=== PATIENT | male | born 1980 | race Caucasian/White ===

== ENCOUNTER 2018-02-04 13:32 | Emergency (ER) | payer BC, OTHER ==
[~2018-02-04] VITALS: Ht 175.3 cm; Wt 117.9 kg
[~2018-02-04 13:32] MED LIST: ALPR2TAB2 PO; ANTACID; HYDR-3720 PO; IBP800T PO; KETO75CA PO; PRX20T PO; RANI-10 PO; ZLP10T PO
[2018-02-04] MEDS ORDERED: HYDROcodone/APAP 5 MG/325 MG (LORTAB) TAB PO ONE (14:00)
[2018-02-04] MEDS ORDERED: HYDR-757 PO (14:05)
--- NOTE | 2018-02-04 14:05 | ED Chest Pain ---
General Chief Complaint: Chest Wall/Rib Pain Stated Complaint: LT RIB PAIN Nursing Triage Note: LEFT RIB PAIN AFGTER USING LEFT CHEST WALL TO BRACE GUTTERS AGAINST YESTERDAY Nursing Sepsis Screen: No Definite Risk Source: patient Exam Limitations: no limitations History of Present Illness Date Seen by Provider: Feb 04, 2018 Time Seen by Provider: 14:02 Initial Comments to ER with left chest wall pain worse with deep breathing. This began yesterday after using a pair of bolt cutters. He had one handle of the bolt cutters braced against his left chest wall and was pulling the other towards him when he felt a popping in his chest Wall with subsequent pain with deep breathing. Timing/Duration: 1-2 days Severity/Quality: severe Radiation: no radiation Activities at Onset: none ASA po CAMOUFLAGE ASSEMBLER: No NTG SL CAMOUFLAGE ASSEMBLER: No Allergies and Home Medications Allergies Coded Allergies: No Known Drug Allergies (Unverified , 12/14/11) Home Medications Hydrocodone/Acetaminophen 1 Each Tablet, 1 EACH PO Q4H PRN for PAIN-MODERATE TO SEVERE Prescribed by: BONNIE MENJIVAR on 02/04/18 1405 Ketoprofen 75 Mg Capsule, 1 EACH PO Q8H PRN for elbow/leg pain Prescribed by: KAROLINA ANTHONY on 01/15/15 0212 Patient Home Medication List Home Medication List Reviewed: Yes Review of Systems Constitutional: see HPI EENTM: No Symptoms Reported Respiratory: No Symptoms Reported; Denies Cough, Denies Orthopnea, Denies Shortness of Air Cardiovascular: No Symptoms Reported Gastrointestinal: No Symptoms Reported; Denies Abdominal Pain Genitourinary: No Symptoms Reported Musculoskeletal: no symptoms reported Skin: no symptoms reported Psychiatric/Neurological: No Symptoms Reported Endocrine: No Symptoms Reported Hematologic/Lymphatic: No Symptoms Reported Past [id number]-Iuuhht Hx Patient Social History Recent Foreign Travel: No Contact w/Someone Who Travel: No Recent Infectious Disease Expo: No Immunizations Up To Date Tetanus Booster (TDap): Less than 5yrs Past Medical History Reproductive Disorders: No Hiatal Hernia Anxiety, Depression Physical Exam Vital Signs Vital Signs - First Documented 02/04/18 13:47 Temp 98.0 Pulse 83 Resp 18 B/P (MAP) 122/79 (93) Pulse Ox 97 Capillary Refill : Less Than 3 Seconds General Appearance: No Apparent Distress, WD/WN, Obese HEENT: PERRL/EOMI, TMs Normal Neck: Full Range of Motion, Normal Inspection, Non Tender Respiratory: Normal Breath Sounds, No Accessory Muscle Use, No Respiratory Distress, Other (eftleft chest wall midaxillary line at about the level of about the fifth through eighth ribs are tenderto palpation but there is no overlying crepitus on palpation, no ecchymosis and lung sounds are equal.) Cardiovascular: Regular Rate, Rhythm, Normal Peripheral Pulses Gastrointestinal: Normal Bowel Sounds, Non Tender, Soft Extremity: Normal Capillary Refill, Normal Inspection Neurologic/Psychiatric: Alert, Oriented x3 Skin: Normal Color, Warm/Dry Progress/Results/Core Measures Results/Orders My Orders Orders - BONNIE MENJIVAR APRN Hydrocodone/Apap 5/325 Tablet (Lortab 5 (02/04/18 14:00) Ribs/Unilateral With Chest (02/04/18 13:50) Medications Given in ED Current Medications Medications Dose Ordered Sig/[place] Route Start Time Stop Time Status Last Admin Dose Admin Acetaminophen/ Hydrocodone Bitart 1 tab ONCE ONCE PO 02/04/18 14:00 02/04/18 14:01 DC 02/04/18 14:02 1 TAB Vital Signs/I&O 02/04/18 13:47 Temp 98.0 Pulse 83 Resp 18 B/P (MAP) 122/79 (93) Pulse Ox 97 Blood Pressure Mean: 93 Departure Impression Primary Impression: Chest wall pain Disposition: 01 HOME, SELF-CARE Condition: Stable Departure-Patient Inst. Decision time for Depature: 14:03 Referrals: NO,LOCAL PHYSICIAN (PCP/Family) Primary Care Physician Patient Instructions: Rib Fracture (DC) Add. Discharge Instructions: 1. Deep breaths. Use the device given to you to ensure that you take a deep breath. Use this device about once or twice every hour while you're awake. Take the pain medication as needed to ensure that you're able to take a deep breath. Return to ER for any cough or fevers that may suggest pneumonia. Follow-up with your doctor in 1-2 weeks.once the prescribed pain medications run out, use Tylenol and Motrin. You may also use ibuprofen in addition to the prescribed pain medication. All discharge instructions reviewed with patient and/or family. Voiced understanding. Scripts Hydrocodone/Acetaminophen ([place] 5-325 Tablet) 1 Each Tablet 1 EACH PO Q4H PRN for PAIN-MODERATE TO SEVERE, #20 TAB Prov: BONNIE MENJIVAR APRN 02/04/18 BONNIE MENJIVAR APRN Feb 04, 2018 14:05
--- NOTE | 2018-02-04 14:47 | Diagnostic Imaging Report ---
INDICATION: Left rib pain. FINDINGS: Four views of the left ribs do not show any displaced fractures. The lungs are clear. There is no effusion or pneumothorax. IMPRESSION: Negative chest and left ribs. Dictated by: Dictated on workstation # [id number]
[2018-02-04 15:05] VITALS: BP 122/79
== END 2018-02-04 15:05 | disposition home or self-care (01) ==
LOC: EDUNIT# 13:32 → ER 13:35
DX: R07.89 Other chest pain (principal); X50.0XXA Overexertion from strenuous movement or load, initial encounter
CPT/HCPCS: 71101